=== PATIENT | male | born 1950 ===

== ENCOUNTER 2025-01-22 08:00 | Day surgery (SDC) | payer OTHER ==
[2025-01-22] MEDS ORDERED: MIDAZOLAM HCL 2 MG/2 ML VIAL IV ONE (08:45)
[2025-01-22] MEDS ORDERED: DIPHENHYDRAMINE HCL 50 MG/ML VIAL 1ML IV ONE (08:45)
[2025-01-22] MEDS ORDERED: fentaNYL CITRATE 50 MCG/ML AMPUL IV PUSH ONE (08:45)
== END 2025-01-22 09:40 | disposition home or self-care (01) ==
LOC: AMB-ENDOS 08:00
PROVIDERS: ATTEND Colon & Rectal Surgery
DX: K63.5 Polyp of colon (principal); Z91.013 Allergy to seafood; K63.89 Other specified diseases of intestine